=== PATIENT | female | born 1985 | race Caucasian/White ===

== ENCOUNTER 2019-11-03 16:02 | Inpatient (IN) | payer BC ==
[~2019-11-03] VITALS: Ht 167.6 cm; Wt 129.1 kg
[2019-11-03] VITALS (169 sets, daily range): BP systolic 160; BP diastolic 69; PULSE 73; TEMP 98.1; O2SAT 90–99
[~2019-11-03 16:02] MED LIST changes: -FIORICET 325 MG1 TA1 PO; -HCTZ 25MG TAB25 MG PO; -JUNEL FE 1.5/301 TAB PO; -NEURONTIN100 MG/CAP PO; -OMNICEF 300MG300 MG PO; -OZEMPIC1 MG/0.75 SQ; -RT Albuterol HFA MDI IH; -WELLBUTRIN XL300 M1 PO
[2019-11-03 17:24] LABS: BASO % 0.2 % (0.0-2.0); EOS # 0.1 (0.0-0.7); EOS % 0.8 % (0-4.0); GRAN # 4.6 (1.4-6.5); GRAN % 70.2 % (42.2-75.2); HEMOGLOBIN 10.6 g/dl (12.5-16.0); LYMPH # 1.6 (1.2-3.4); LYMPH % 24.8 % (20.0-51.0); MEAN CELL VOLUME 87 fl (80.0-100.0); MEAN CORPUSCULAR HEMOGLOBIN 28 pg (27.0-31.0); MEAN CORPUSCULAR HGB CONC 33 g/dl (33.0-37.0); MEAN PLATELET VOLUME 10.7 fl (7.4-10.4); MONO # 0.2 (0.1-0.6); MONO % 3.7 % (1.7-9.3); PLATELET COUNT 282 K/mm3 (130-400); RED BLOOD COUNT 3.74 M/mm3 (4.10-5.30)
[2019-11-03] MEDS ORDERED: WELLBUTRIN XL300 M1 PO (17:26)
[2019-11-03] MEDS ORDERED: NEURONTIN100 MG/CAP PO (17:27)
[2019-11-03 17:33] LABS: HEMATOCRIT 32.6 % (37.0-47.0)
[2019-11-03 17:40] LABS: ALBUMIN 3.3 gm/dL (3.5-5.0); BILIRUBIN,TOTAL 0.2 mg/dL (0.0-1.0); CALCIUM 8.2 mg/dL (8.4-10.2); CREATININE, serum 0.47 (0.52-1.25); POTASSIUM 3.7 mmol/L (3.4-5.0); TOTAL PROTEIN 6.5 gm/dL (6.4-8.2)
[2019-11-03 17:52] LABS: C-REACTIVE PROTEIN 17.6 mg/dL (0.0-0.9)
[2019-11-03] MEDS ORDERED: HCTZ 25MG TAB25 MG PO (19:26)
[2019-11-03] MEDS ORDERED: JUNEL FE 1.5/301 TAB PO (19:26)
[2019-11-03] MEDS ORDERED: OZEMPIC1 MG/0.75 SQ (21:10)
[2019-11-03 21:17] LABS: PROTHROMBIN TIME 11.8 SECONDS (9.7-12.8)
[2019-11-03 21:27] LABS: CREATINE KINASE 80 U/L (30-135); MAGNESIUM 2.1 mg/dL (1.6-2.3); PHOSPHOROUS 3.2 mg/dL (2.5-4.5)
[2019-11-03 21:44] LABS: TROPONIN-I < 0.012 ng/mL (0.000-0.035)
[2019-11-04] VITALS (669 sets, daily range): BP systolic 125–166; BP diastolic 68–97; PULSE 71–76; TEMP 97.7–98.9; O2SAT 85–98
[2019-11-04 01:01] LABS: ARTERIAL BLD GAS TCO2 CT 21.4; ARTERIAL BLOOD GAS BASE EXCESS -3.5 (-2-2); ARTERIAL BLOOD GAS HCO3 20.4 meq/L (22-26); ARTERIAL BLOOD GAS PCO2 32.8 mmHg (35-45); ARTERIAL BLOOD GAS pH 7.41 (7.35-7.45)
--- NOTE | 2019-11-04 02:09 | NUR ---
Patient reports 7/10 headache not relieved by tylenol. Per [facility] order added for morphine.
[2019-11-04 05:31] LABS: HEMOGLOBIN 10.2 g/dl (12.5-16.0); MEAN CELL VOLUME 87 fl (80.0-100.0); MEAN CORPUSCULAR HEMOGLOBIN 28 pg (27.0-31.0); MEAN CORPUSCULAR HGB CONC 32 g/dl (33.0-37.0); MEAN PLATELET VOLUME 10.7 fl (7.4-10.4); PLATELET COUNT 258 K/mm3 (130-400); RED BLOOD COUNT 3.67 M/mm3 (4.10-5.30); REDCELL DISTRIBUTION WIDTH-CV 15.2 % (11.5-14.5)
[2019-11-04 05:34] LABS: HEMATOCRIT 31.9 % (37.0-47.0)
[2019-11-04 05:36] LABS: ALBUMIN 3.1 gm/dL (3.5-5.0); BILIRUBIN,TOTAL 0.2 mg/dL (0.0-1.0); CALCIUM 7.9 mg/dL (8.4-10.2); CREATININE, serum 0.59 (0.52-1.25); POTASSIUM 3.6 mmol/L (3.4-5.0); TOTAL PROTEIN 6.1 gm/dL (6.4-8.2)
[2019-11-04 05:54] LABS: BAND 2 % (0-10); LYMPHOCYTE 30 % (20.0-51.0); NEUTROPHILS 65 % (42.0-75.2); PLATELET ESTIMATE NORMAL (NORMAL)
--- NOTE | 2019-11-04 06:00 | NUR ---
Patient 87% on 1.5 liters. increased to 3 liters maintaining at 94% at this time.
--- NOTE | 2019-11-04 07:06 | NUR ---
Patient given x1 dose of morphine and x1 dose of tylenol for headache throughout night. Was increased to 3 liters nasal cannula for oxygen saturation of 87%. Currently at 93%. Otherwise uneventful night. Resting in bed this AM.
--- NOTE | 2019-11-04 07:45 | NUR ---
Report received from ARIEL Lawrence. Pt remains in [facility] isolation.
--- NOTE | 2019-11-04 07:50 | NUR ---
Report given to ARIEL Costa
--- NOTE | 2019-11-04 10:20 | NUR ---
Pt up to bathroom with stand by assist. Pt denies SOB, states she feels "fine if walk slowly". Pt voided and back to bed. SP02 89-90% after activity. Increased to 94% on 3L/NC once resting in bed.
--- NOTE | 2019-11-04 11:08 | NUR ---
SW contacted the patient to discuss discharge plan. The patient lives in [place] with her , Jaun Shahid (ph#[phone]), and her son. She reports independence with ADLs and does not have any DME. The patient's PCP is Dr. Eber Arango and she receives her medications at [facility]. She reports no difficulties obtaining her meds. The patient was unsure if she has advanced directives completed. The patient plans to return back home with her family upon discharge. The patient is positive for COVID-19. SW to follow as needed.
--- NOTE | 2019-11-04 14:00 | NUR ---
Pt watching tv in bed. O2 decreased to 2.5L/NC. Pt has no complaints at this time. Call light in reach.
--- NOTE | 2019-11-04 19:33 | NUR ---
Report given to Kalia Lawrence.
--- NOTE | 2019-11-04 21:15 | NUR ---
Resting in bed. Assessment complete. Left lower lobe dimished otherwise clear. Respiratory had increased oxygen to 3 liters due to saturations 88 to 89%. Saturations now 89 to 90%. Increased patient to 3.5 liters. Now saturation at 93%. Patient denies shortness of breath at this time. Heart sounds normal. Bowels active. Pulses present. Bilateral lower leg edema +1. INT right AC flushed. Patient reports 9/10 headache. Provided with PRN morphine at this time. Denies other needs. Call light in reach.
--- NOTE | 2019-11-04 22:16 | NUR ---
Patient reports 5/10 headache after administration of morphine. Will monitor.
[2019-11-05] VITALS (637 sets, daily range): BP systolic 111–154; BP diastolic 63–90; PULSE 67–72; TEMP 97.8–98.4; O2SAT 81–99
--- NOTE | 2019-11-05 00:42 | NUR ---
Reports 03/25 headache. Will provide PRN morphine to patient. Denies other needs at this time. Call light in reach.
--- NOTE | 2019-11-05 03:34 | NUR ---
Patient oxygen saturation 87% while asleep supine. Increased to 4 liters nasal cannula from 3.5, maintaining at 92 to 94% at this time. Will continue to monitor.
--- NOTE | 2019-11-05 04:36 | NUR ---
Patient had increased work of breathing oxygen saturations 88 to 90% on 4 liters. Provided with albuterol inhaler with RT. Will continue closely monitor.
[2019-11-05 05:33] LABS: BASO % 0.3 % (0.0-2.0); EOS # 0.1 (0.0-0.7); EOS % 1.8 % (0-4.0); GRAN # 4.1 (1.4-6.5); GRAN % 61.3 % (42.2-75.2); HEMOGLOBIN 10.5 g/dl (12.5-16.0); LYMPH % 30.3 % (20.0-51.0); MEAN CELL VOLUME 87 fl (80.0-100.0); MEAN CORPUSCULAR HEMOGLOBIN 28 pg (27.0-31.0); MEAN CORPUSCULAR HGB CONC 32 g/dl (33.0-37.0); MEAN PLATELET VOLUME 11.2 fl (7.4-10.4); MONO # 0.4 (0.1-0.6); PLATELET COUNT 277 K/mm3 (130-400); RED BLOOD COUNT 3.71 M/mm3 (4.10-5.30); REDCELL DISTRIBUTION WIDTH-CV 15.2 % (11.5-14.5)
[2019-11-05 05:36] LABS: HEMATOCRIT 32.4 % (37.0-47.0)
[2019-11-05 05:44] LABS: ALBUMIN 3.3 gm/dL (3.5-5.0); BILIRUBIN,TOTAL 0.4 mg/dL (0.0-1.0); CALCIUM 8.3 mg/dL (8.4-10.2); CREATININE, serum 0.47 (0.52-1.25); POTASSIUM 3.9 mmol/L (3.4-5.0); TOTAL PROTEIN 6.5 gm/dL (6.4-8.2)
--- NOTE | 2019-11-05 06:35 | NUR ---
Patient had increased oxygen needs up to 4 liters over night. Patient had albuterol inhaler this AM. Currently resting at 92% on 4 liters. Received morphine for pain control. Otherwise uneventful night. Resting in bed this AM. Call light in reach.
--- NOTE | 2019-11-05 08:35 | NUR ---
Report given to ARIEL Brandt
[2019-11-05 13:40] LABS: CK total - for Isoenzymes 69 U/L (26 - 192)
--- NOTE | 2019-11-05 18:35 | NUR ---
Pt had uneventful day. O2 needs decreased slightly to 3L. Pt is independent in the room. No further concerns.
--- NOTE | 2019-11-05 19:55 | NUR ---
Patient resting in bed. Assessment complete. Right lower lobe dimished otherwise clear. Heart sounds normal. Bowels active x4. Pulses strong throughout. No edema noted. INT right AC without complications. Denies pain. Denies needs at this time. Call light in reach.
--- NOTE | 2019-11-05 21:30 | NUR ---
patient reporting INT right AC painful. Requested INT be moved out of AC. Moved to right forearm. Denies other needs at this time. Call light in reach.
[2019-11-06] VITALS (533 sets, daily range): BP systolic 123–140; BP diastolic 66–87; PULSE 63–69; TEMP 97.4–98.9; O2SAT 83–100
--- NOTE | 2019-11-06 01:15 | NUR ---
Patient resting in bed. Denies needs. Denies pain. Call light in reach.
--- NOTE | 2019-11-06 03:49 | NUR ---
Radiology in room for morning chest xray. Denies needs. Call light in reach.
[2019-11-06 05:07] LABS: MEAN CELL VOLUME 86 fl (80.0-100.0); MEAN CORPUSCULAR HEMOGLOBIN 28 pg (27.0-31.0); MEAN CORPUSCULAR HGB CONC 33 g/dl (33.0-37.0); MEAN PLATELET VOLUME 10.5 fl (7.4-10.4); PLATELET COUNT 324 K/mm3 (130-400)
[2019-11-06 05:09] LABS: HEMATOCRIT 33.7 % (37.0-47.0)
[2019-11-06 05:14] LABS: ALBUMIN 3.4 gm/dL (3.5-5.0); BILIRUBIN,TOTAL 0.4 mg/dL (0.0-1.0); CALCIUM 8.5 mg/dL (8.4-10.2); CREATININE, serum 0.58 (0.52-1.25); POTASSIUM 4.1 mmol/L (3.4-5.0); TOTAL PROTEIN 6.6 gm/dL (6.4-8.2)
[2019-11-06 05:52] LABS: EOSINOPHIL 6 % (0-4); LYMPHOCYTE 45 % (20.0-51.0); NEUTROPHILS 38 % (42.0-75.2)
[2019-11-06 05:53] LABS: PLATELET ESTIMATE NORMAL (NORMAL)
--- NOTE | 2019-11-06 06:50 | NUR ---
Patient had uneventful night. Remains on 3 liters throughout night. Resting in bed this AM. Call light in reach.
--- NOTE | 2019-11-06 07:35 | NUR ---
Report given to ARIEL Yun
--- NOTE | 2019-11-06 18:30 | NUR ---
Patient has been doing well today. She has been independent in the room. She was able to get off the oxygen today. She stated is more tired today but her breathing feels better. No shortness of breath. She did have a headache once this afternoon. No other changes at this time. Call light within reach.
--- NOTE | 2019-11-06 19:49 | NUR ---
Bedside report received from ARIEL Yun
--- NOTE | 2019-11-06 20:00 | NUR ---
Patient resting in bed watching TV at this time. She is a very pleasant woman who is A+Ox4. Patient has been independently getting up to the restroom. She has complaints of a severe headache. Patient requests pain medication but states the fiorocet does not work for her. Morphine to be provided. No complaints of SOA. Assessment complete that reveals clear lung sounds with diminished bases. HR and rhythm are regular with normal S1 and S2 heard. Bowel sounds active x4. Peripheral pulses are all palpable, no edema noted. Patient requests a diet soda, provided. Patient has no further needs at this time. Will continue to monitor. Call light within reach.
--- NOTE | 2019-11-06 22:00 | NUR ---
When going to give patient medications it was found that right forearm IV was not working. IV removed and found that catheter was doubled over twice underneath the dressing. No signs of infiltration or phlebitis. Catheter tip intact. New 20g IV placed in left forearm. Medications given. No further needs at this time.
[2019-11-07] VITALS (728 sets, daily range): BP systolic 104–148; BP diastolic 52–92; PULSE 62–81; TEMP 97.5–98.6; O2SAT 81–99
[2019-11-07 05:27] LABS: HEMATOCRIT 36.6 % (37.0-47.0); HEMOGLOBIN 11.6 g/dl (12.5-16.0); MEAN CELL VOLUME 88 fl (80.0-100.0); MEAN CORPUSCULAR HEMOGLOBIN 28 pg (27.0-31.0); MEAN CORPUSCULAR HGB CONC 32 g/dl (33.0-37.0); MEAN PLATELET VOLUME 10.3 fl (7.4-10.4); PLATELET COUNT 394 K/mm3 (130-400); RED BLOOD COUNT 4.18 M/mm3 (4.10-5.30); REDCELL DISTRIBUTION WIDTH-CV 14.8 % (11.5-14.5)
[2019-11-07 05:37] LABS: ALBUMIN 3.7 gm/dL (3.5-5.0); BILIRUBIN,TOTAL 0.4 mg/dL (0.0-1.0); CALCIUM 9.3 mg/dL (8.4-10.2); CREATININE, serum 0.58 (0.52-1.25); POTASSIUM 4.5 mmol/L (3.4-5.0); TOTAL PROTEIN 7.1 gm/dL (6.4-8.2)
[2019-11-07 06:03] LABS: BAND 8 % (0-10); LYMPHOCYTE 43 % (20.0-51.0); METAMYELOCYTE 2 % (0-0); NEUTROPHILS 41 % (42.0-75.2); PLATELET ESTIMATE NORMAL (NORMAL)
--- NOTE | 2019-11-07 08:36 | NUR ---
Bedside report given to ARIEL Lacy
--- NOTE | 2019-11-07 10:26 | NUR ---
The patient is to tentatively discharge back home with her family tomorrow, 11/06. An exercise oximetry has been ordered. SW contacted the patient to discuss where she would like to receive her oxygen, if she does qualify for it. The patient was agreeable to [facility]. SW will need to contact and fax the patient's script and information to [facility], if she does qualify. SW to continue to follow.
--- NOTE | 2019-11-07 11:04 | NUR ---
Pt assessment complete. Pt is sitting up in bed on entry, she is A/O x4. Her breathing is even and unlabored currently on RA. O2 sat >90%. No SOB. Reports only cough is after the use of her inhaler. Pt slightly emotional this am d/t discussion with doctors about liver function. Discussed scenario with patient who is understanding. Pt denies any pain. Water and diet pepsi provided to patient has no further needs. Call light within reach.
[2019-11-07 15:07] LABS: CK total - for Isoenzymes 58 U/L (26 - 192)
--- NOTE | 2019-11-07 15:46 | NUR ---
Pt O2 sat <90% while sleeping, placed back on 2L O2 via NC, sats increased to 93-95%. Will continue to monitor.
--- NOTE | 2019-11-07 18:11 | NUR ---
Pt was very drowsy through the day. Denied any increased SOB or pain. She was intermittently on O2, more so when sleeping. No needs at this time. Call light within reach.
--- NOTE | 2019-11-07 20:30 | NUR ---
Assessment complete. Resting in bed. Watching television. C/O headache. PRN morphine admin. Reports this med has been effective previously. States, "Tylenol isn't good for my liver right now." Conversant. Reports that she is in good spirits and that she is looking forward to discharge. Denies other needs at this time.
[2019-11-08] VITALS (302 sets, daily range): BP systolic 113–137; BP diastolic 64–87; PULSE 66–77; TEMP 97.9–98.7; O2SAT 81–99
[2019-11-08 06:18] LABS: HEMATOCRIT 39.1 % (37.0-47.0); HEMOGLOBIN 12.3 g/dl (12.5-16.0); MEAN CELL VOLUME 87 fl (80.0-100.0); MEAN CORPUSCULAR HEMOGLOBIN 28 pg (27.0-31.0); MEAN CORPUSCULAR HGB CONC 32 g/dl (33.0-37.0); MEAN PLATELET VOLUME 10.9 fl (7.4-10.4); PLATELET COUNT 448 K/mm3 (130-400); RED BLOOD COUNT 4.48 M/mm3 (4.10-5.30); REDCELL DISTRIBUTION WIDTH-CV 14.8 % (11.5-14.5)
[2019-11-08 06:30] LABS: ALBUMIN 3.9 gm/dL (3.5-5.0); BILIRUBIN,TOTAL 0.3 mg/dL (0.0-1.0); CALCIUM 9.5 mg/dL (8.4-10.2); CREATININE, serum 0.71 (0.52-1.25); TOTAL PROTEIN 7.3 gm/dL (6.4-8.2)
--- NOTE | 2019-11-08 07:00 | NUR ---
Report received from ARIEL Botello. PT in bed resting, denies needs, will continue to monitor.
--- NOTE | 2019-11-08 08:45 | NUR ---
Assessment charted. Discussed lab results. Pt very upset with increase LFTs but feeling very well, not requiring any oxygen, not feeling short of breath. Coughing rarely. Really would like to discharge home. INT to LFA. Going to bathroom independently. Denies pain. Will continue to monitor.
[2019-11-08 09:00] LABS: BAND 4 % (0-10); LYMPHOCYTE 53 % (20.0-51.0); NEUTROPHILS 37 % (42.0-75.2); PLATELET ESTIMATE NORMAL (NORMAL)
[2019-11-08] MEDS ORDERED: RT Albuterol HFA MDI IH (10:48)
[2019-11-08] MEDS ORDERED: FIORICET 325 MG1 TA1 PO (10:49)
[2019-11-08] MEDS ORDERED: OMNICEF 300MG300 MG PO (10:50)
--- NOTE | 2019-11-08 12:19 | NUR ---
Discharge teaching completed at this time. Pt left on own, ambulated with myself. Discharge instructions reviewed, scripts given, packet discussed and answered questions. PT doing well, left with all belongings, okay to drive self home, criteria met. INT dc'd, tip itnact
[2019-11-08 15:53] LABS: CK total - for Isoenzymes 37 U/L (26 - 192)
[2019-11-12 10:17] LABS: MYCOPLASMA IGM ANTIBODIES Negative (Negative)
== END 2019-11-08 12:40 | disposition home or self-care (01) | DRG 177 ==
LOC: COL.ER 16:02 → IMCU 19:51 → COL.ER 19:51 → IMCU 19:51
PROVIDERS: Emergency Medicine; Internal Medicine Infectious Disease; Nurse Practitioner Family; ADMIT Hospitalist
DX: U07.1 COVID-19 (principal); J12.89 Other viral pneumonia; J96.01 Acute respiratory failure with hypoxia; Z68.41 Body mass index [BMI] 40.0-44.9, adult; I10 Essential (primary) hypertension; G89.29 Other chronic pain; M54.9 Dorsalgia, unspecified; F32.9 Major depressive disorder, single episode, unspecified; E03.9 Hypothyroidism, unspecified; E11.9 Type 2 diabetes mellitus without complications; D64.9 Anemia, unspecified; J45.40 Moderate persistent asthma, uncomplicated; E66.01 Morbid (severe) obesity due to excess calories; Z87.891 Personal history of nicotine dependence
CPT/HCPCS: 99223-AI; 99232-AI; 99233-AI; A4216; J0696; J1650; J1885; J2270; J7030

== ENCOUNTER → 2019-11-03 | Outpatient (CLI) | payer BC ==
[~2019-11-03] MED LIST: BCP; CYMBALTA 60MG60 MG PO; CYTOMEL 5MC5 MCG/TAB PO; FIORICET 325 MG1 TA1 PO; HCTZ 25MG TAB25 MG PO; JUNEL FE 1.5/301 TAB PO; NEURONTIN100 MG/CAP PO; OMNICEF 300MG300 MG PO; OZEMPIC1 MG/0.75 SQ; PERCOCET 325 MG1 TA2 PO; RT Albuterol HFA MDI IH; SYNTHROID0.1 MG/TAB PO; TOPROL XL100 MG PO; WELLBUTRIN XL300 M1 PO
== END ==
LOC: COL.RAD 14:58
DX: U07.1 COVID-19 (principal); R05 Cough

== ENCOUNTER → 2019-11-14 | Outpatient (CLI) | payer BC ==
[~2019-11-14] MED LIST changes: +FIORICET 325 MG1 TA1 PO; +HCTZ 25MG TAB25 MG PO; +JUNEL FE 1.5/301 TAB PO; +NEURONTIN100 MG/CAP PO; +OMNICEF 300MG300 MG PO; +OZEMPIC1 MG/0.75 SQ; +RT Albuterol HFA MDI IH; +WELLBUTRIN XL300 M1 PO
== END ==
LOC: COL.RAD 09:36
DX: J18.9 Pneumonia, unspecified organism (principal)

== ENCOUNTER → 2019-11-21 | Outpatient (CLI) | payer BC | LOC: COL.RAD 09:00 | DX: U07.1 COVID-19 (principal); J12.89 Other viral pneumonia ==

== ENCOUNTER → 2020-07-22 | Outpatient (CLI) | payer BC | LOC: COL.RAD 13:45 | DX: M51.14 Intervertebral disc disorders with radiculopathy, thoracic region (principal) ==

== ENCOUNTER → 2020-09-01 | Outpatient (CLI) | payer BC | LOC: MHCPAIN 12:26 | DX: M47.816 Spondylosis without myelopathy or radiculopathy, lumbar region (principal); M96.1 Postlaminectomy syndrome, not elsewhere classified; M47.814 Spondylosis without myelopathy or radiculopathy, thoracic region; E66.8 Other obesity; F17.210 Nicotine dependence, cigarettes, uncomplicated | CPT/HCPCS: G0463 ==

== ENCOUNTER 2020-12-09 16:15 | Outpatient (RCR) | payer BC | END 2020-12-15 | disposition still patient (30) | LOC: WSPT | DX: M47.814 Spondylosis without myelopathy or radiculopathy, thoracic region (principal) ==

== ENCOUNTER → 2023-11-20 | Outpatient (CLI) | payer BC | LOC: MC.RAD 11:32 | DX: Z12.31 Encounter for screening mammogram for malignant neoplasm of breast (principal) ==